=== PATIENT | female | born 2000 | race Caucasian/White ===

== ENCOUNTER → 2018-11-02 | Outpatient (CLI) | payer OTHER ==
--- NOTE | 2018-11-03 13:31 | Diagnostic Imaging Report ---
EXAM: Nuclear Medicine thyroid imaging and uptake. DATE: 11/03/2018 at 11:51 AM. INDICATION: 18-year-old female, hyperthyroidism. COMPARISON: None TECHNIQUE: 201 ?Ci of I-123 was administered. Subsequent scintigraphic images of the thyroid were obtained in multiple projections. 6 and 24-hour thyroid uptake rise were obtained. FINDINGS: The 6 hour thyroid uptake is calculated at 71.7%. The 24-hour thyroid uptake is calculated at 100%. Normal range for uptake at 4-6 hours (5-20%). Normal range of uptake at 24 hours (10-35%). There is diffuse radiotracer uptake throughout the right and left lobes of the thyroid. There is no identified radiotracer avid or photopenic nodule. IMPRESSION: 1. Significantly elevated thyroid uptake values with diffuse radiotracer activity throughout the thyroid gland. This may potentially reflect Graves' disease. Recommend correlation with laboratory values. 2. No identified iodine avid or photopenic thyroid nodule. Dictated by: Dictated on workstation # [id number]
== END ==
LOC: CARD 10:25
PROVIDERS: ATTEND Internal Medicine Endocrinology, Diabetes & Metabolism
DX: E05.90 Thyrotoxicosis, unspecified without thyrotoxic crisis or storm (principal)
CPT/HCPCS: 78014